=== PATIENT | male | born 1990 | race Caucasian/White ===

== ENCOUNTER 2018-01-20 10:55 | Emergency (ER) | payer BC ==
[2018-01-20] MEDS: DIPHTH,PERTUSS(ACELL),TET TOX 0.5 ML DISP.SYRIN. VAX IM (12:04)
[2018-01-20] MEDS: IBUPROFEN 800 MG TABLET. PO (12:08)
== END 2018-01-20 12:08 | disposition home or self-care (01) ==
LOC: ER 10:55
DX: L55.1 Sunburn of second degree (principal); Z88.2 Allergy status to sulfonamides
CPT/HCPCS: 90471; 90715; 99283-25

== ENCOUNTER 2018-01-22 11:47 | Emergency (ER) | payer BC ==
[2018-01-22] MEDS: HYDROcodone/APAP 5/325MG 1 TAB TABLET PO (12:18)
== END 2018-01-22 12:35 | disposition home or self-care (01) ==
LOC: ER 11:47
DX: L55.9 Sunburn, unspecified (principal); F17.200 Nicotine dependence, unspecified, uncomplicated; Z88.2 Allergy status to sulfonamides
CPT/HCPCS: 99283

== ENCOUNTER 2018-10-18 12:49 | Emergency (ER) | payer BC ==
[~2018-10-18] VITALS: Ht 172.7 cm; Wt 90.7 kg
[~2018-10-18 12:49] MED LIST: CEPH500T PO; HYDR-3164 PO
[2018-10-18 13:13] VITALS: BP 141/84
[2018-10-18] MEDS ORDERED: NAPROXEN 500 MG TABLET PO STA (13:30)
[2018-10-18] MEDS ORDERED: BACITRACIN TOPICAL OINT 14GM TUBE. TP STA (13:30)
[2018-10-18] MEDS ORDERED: HYDROcodone/APAP 5/325MG 1 TAB TABLET PO ONE (13:30)
[2018-10-18] MEDS ORDERED: HYDR-3164 PO (13:59)
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
== END 2018-10-18 14:22 | disposition home or self-care (01) ==
LOC: ER 12:49
DX: T22.211A Burn of second degree of right forearm, initial encounter (principal); T31.11 Burns involving 10-19% of body surface with 10-19% third degree burns; X12.XXXA Contact with other hot fluids, initial encounter; Y93.G1 Activity, food preparation and clean up; Y92.511 Restaurant or cafe as the place of occurrence of the external cause; Y99.0 Civilian activity done for income or pay
CPT/HCPCS: 99284

== ENCOUNTER 2019-03-08 12:52 | Emergency (ER) | payer SELFPAY ==
[~2019-03-08] VITALS: Ht 175.3 cm; Wt 95.3 kg
[2019-03-08 13:06] VITALS: BP 144/70
[2019-03-08] MEDS ORDERED: CEPH-264 PO (13:13)
--- NOTE | 2019-03-08 13:13 | PHYS DOC ---
Past Medical History Past Medical History: No Pertinent History Past Surgical History: Tonsillectomy Alcohol Use: Occasionally Drug Use: None Adult General Chief Complaint Chief Complaint: ABSCESS HPI HPI Patient is a 28 year old male who presents with states he shaved a week ago and now has a right-sided base of scrotum abscess that has been draining purulent fluid. Patient states he does not have pain he only has discomfort. He rates his discomfort at a 4 out of 10. Review of Systems Review of Systems Constitutional: Denies fever or chills [] Eyes: Denies change in visual acuity, redness, or eye pain [] HENT: Denies nasal congestion or sore throat [] Respiratory: Denies cough or shortness of breath [] Cardiovascular: No additional information not addressed in HPI [] GI: Denies abdominal pain, nausea, vomiting, bloody stools or diarrhea [] : Denies dysuria or hematuria [] Musculoskeletal: Denies back pain or joint pain [] Integument: Right sided basal scrotum abscess that is skin toned and nonfluctuant. Denies rash or skin lesions [] Neurologic: Denies headache, focal weakness or sensory changes [] Endocrine: Denies polyuria or polydipsia [] All other systems were reviewed and found to be within normal limits, except as documented in this note. Allergies Allergies Allergies Coded Allergies Type Severity Reaction Last Updated Verified Sulfa (Sulfonamide Antibiotics) Allergy Intermediate 10/18/18 Yes Physical Exam Physical Exam Constitutional: Well developed, well nourished, no acute distress, non-toxic appearance. [] HENT: Normocephalic, atraumatic, bilateral external ears normal, oropharynx moist, no oral exudates, nose normal. [] Eyes: PERRLA, EOMI, conjunctiva normal, no discharge. [] Neck: Normal range of motion, no tenderness, supple, no stridor. [] Cardiovascular:Heart rate regular rhythm, no murmur [] Lungs & Thorax: Bilateral breath sounds clear to auscultation [] Abdomen: Bowel sounds normal, soft, no tenderness, no masses, no pulsatile masses. [] Skin: Right base of scrotum abscess, non-fluctuant and skin tone and color. Warm, dry, no erythema, no rash. [] Back: No tenderness, no CVA tenderness. [] Extremities: No tenderness, no cyanosis, no clubbing, ROM intact, no edema. [] Neurologic: Alert and oriented X 3, normal motor function, normal sensory function, no focal deficits noted. [] Psychologic: Affect normal, judgement normal, mood normal. [] EKG EKG [] Radiology/Procedures Radiology/Procedures [] Course & Med Decision Making Course & Med Decision Making Patient is a 28 year old male who presents with states he shaved a week ago and now has a right-sided base of scrotum abscess that has been draining purulent fluid. Patient states he does not have pain he only has discomfort. He rates his discomfort at a 4 out of 10. Denies fevers, nausea, vomiting, abdominal pain, dysuria. Patient has a right-sided base of scrotum abscess that is hard and non- raised. It is skin tone and in color and non-tender with palpation. The abscess is not currently draining. There is no streaking or associated cellulitis to the scrotum at this time. Patient says he has been sitting in a hot baths to help it to drain. Patient is put on Keflex antibiotic and to take ibuprofen for pain. Patient is to follow-up here in the next 48 hours for a recheck. Dragon Disclaimer Dragon Disclaimer This electronic medical record was generated, in whole or in part, using a voice recognition dictation system. Departure Departure Impression: Primary Impression: Abscess Disposition: 01 HOME, SELF-CARE Condition: STABLE Referrals: NO PCP (PCP) Patient Instructions: Abscess Additional Instructions: FOLLOW UP HERE IN THE ED IN 48 HOURS FOR A RECHECK. TAKE MEDICATION PRESCRIBED. USE IBUPROFEN FOR ANY PAIN. Scripts Cephalexin (KEFLEX) 500 Mg Capsule 1 CAP PO TID, #21 CAP Prov: SHANTHI ESPINOZA DENTAL INSTRUMENT MAKER 03/08/19 SHANTHI ESPINOZA DENTAL INSTRUMENT MAKER Mar 08, 2019 13:13
== END 2019-03-08 13:21 | disposition home or self-care (01) ==
LOC: ER 12:52
DX: N49.2 Inflammatory disorders of scrotum (principal); Z88.2 Allergy status to sulfonamides
CPT/HCPCS: 99283